=== PATIENT | male | born 1990 | race Caucasian/White ===

== ENCOUNTER 2017-11-19 15:49 | Emergency (ER) | payer SELFPAY ==
[2017-11-19 16:09] VITALS: BP 113/73; PULSE 63; RESP 18; TEMP 99.2; O2SAT 97
--- NOTE | 2017-11-19 16:18 | C.PDOC ---
History Of Present Illness 26-year-old male presents to the ED with complaints of left shoulder pain for 2 days. He reports heavy lifting at work and strained his arm. Patient took aleve with mild relief. He has a history of tear and surgical repair 2 years ago. Denies any numbness, weakness or fall. Time Seen by Provider: 11/19/17 16:11 Chief Complaint (Nursing): Upper Extremity Problem/Injury History Per: Patient History/Exam Limitations: no limitations Onset/Duration Of Symptoms: Days Current Symptoms Are (Timing): Still Present Past Medical History Reviewed: Historical Data, Nursing Documentation, Vital Signs Vital Signs: Last Vital Signs Temp 99.2 F 11/19/17 16:07 Pulse 63 11/19/17 16:07 Resp 18 11/19/17 16:07 BP 113/73 11/19/17 16:07 Pulse Ox 97 11/19/17 17:19 - Medical History PMH: No Chronic Diseases Other Surgeries: Left shoulder surgery Family History: States: No Known Family Hx - Social History Hx Alcohol Use: No Hx Substance Use: No Review Of Systems Except As Marked, All Systems Reviewed And Found Negative. Musculoskeletal: Positive for: Shoulder Pain. Negative for: Other (swelling) Neurological: Negative for: Weakness, Numbness, Incoordination Physical Exam - Physical Exam Appears: Well, Non-toxic, No Acute Distress Skin: Warm, Dry, No Rash Head: Atraumatic, Normacephalic Eye(s): bilateral: Normal Inspection Oral Mucosa: Moist Neck: Normal ROM, Supple Chest: Symmetrical Cardiovascular: Rhythm Regular, No Murmur Respiratory: Normal Breath Sounds, No Rales, No Rhonchi, No Wheezing Extremity: Normal ROM, Tenderness (mild tenderness to the anterior aspect of left shoulder), No Deformity, No Swelling Pulses: Left Radial: Normal, Right Radial: Normal Neurological/Psych: Oriented x3, Normal Speech, Normal Motor, Normal Sensation ED Course And Treatment O2 Sat by Pulse Oximetry: 97 (room air) Pulse Ox Interpretation: Normal Medical Decision Making Medical Decision Making: Impression: 26-year-old with left shoulder pain; no new injury Patient will be discharged home with prescription for Motrin. Advised to take medication as prescribed for pain control and follow up with orthopedist for further evaluation. There is agreement to discharge plan. Disposition Counseled Patient/Family Regarding: Diagnosis, Need For Followup, Rx Given - Disposition Referrals: Zuhair Mortensen MD [Staff Provider] - Disposition: HOME/ ROUTINE Disposition Time: 16:17 Condition: GOOD Additional Instructions: Take Motrin as needed for pain every 6 hours, with food to not upset stomach. Follow up with orthopedic if pain persists over one week. Prescriptions: Ibuprofen [Motrin] 600 mg PO Q8 #30 tab Instructions: Shoulder Pain (DC) Forms: Work Excuse - POA Present On Arrival: None - Clinical Impression Clinical Impression: Sprain of shoulder - PA / [employer] / Resident Statement MD/DO has reviewed & agrees with the documentation as recorded. - Scribe Statement The provider has reviewed the documentation as recorded by the Scribe (Clarice Strickland) All medical record entries made by the Scribe were at my direction and personally dictated by me. I have reviewed the chart and agree that the record accurately reflects my personal performance of the history, physical exam, medical decision making, and the department course for this patient. I have also personally directed, reviewed, and agree with the discharge instructions and disposition.
== END 2017-11-19 16:29 | disposition home or self-care (01) ==
LOC: C.ER 15:49
DX: S43.402A Unspecified sprain of left shoulder joint, initial encounter (principal); X50.9XXA Other and unspecified overexertion or strenuous movements or postures, initial encounter; Y92.89 Other specified places as the place of occurrence of the external cause; Y99.0 Civilian activity done for income or pay

== ENCOUNTER 2017-11-21 13:47 | Emergency (ER) | payer MEDICAID, OTHER ==
[2017-11-21 14:10] VITALS: BP 145/84; PULSE 83; RESP 18; TEMP 98.5; O2SAT 98
--- NOTE | 2017-11-21 14:13 | C.PDOC ---
History Of Present Illness 26-year-old male presents to the ED with complaints of worsening right shoulder pain and new-onset paresthesias down the right arm for 2 days. Patient seen here on 11/19 and was initially only having the shoulder pain, discharged home with Motrin 600mg prescription. Patient is now having new pain radiating down the right arm and paresthesias to the 2nd and 3rd fingers. He denies associated weakness, numbness, or neck pain. Patient admits he does a lot of heavy lifting with jerking motions at his job. No trauma. He reports limited relief with Motrin. Time Seen by Provider: 11/21/17 14:11 Chief Complaint (Nursing): Upper Extremity Problem/Injury History Per: Patient History/Exam Limitations: no limitations Onset/Duration Of Symptoms: Days Current Symptoms Are (Timing): Still Present Exacerbating Factor(s): Strenuous Use Of Affected Area, Movement Past Medical History Reviewed: Historical Data, Nursing Documentation, Vital Signs Vital Signs: Last Vital Signs Temp 98.5 F 11/21/17 14:07 Pulse 83 11/21/17 14:07 Resp 18 11/21/17 14:07 BP 145/84 11/21/17 14:07 Pulse Ox 98 11/21/17 14:36 - Medical History PMH: No Chronic Diseases Other Surgeries: Left shoulder surgery Family History: States: No Known Family Hx - Social History Hx Tobacco Use: No Hx Alcohol Use: No Hx Substance Use: No - Immunization History Hx Tetanus Toxoid Vaccination: No Hx Influenza Vaccination: Yes Hx Pneumococcal Vaccination: No Review Of Systems Except As Marked, All Systems Reviewed And Found Negative. Musculoskeletal: Positive for: Shoulder Pain (radiating down right arm). Negative for: Neck Pain Neurological: Positive for: Other (paresthesias to right 2nd and 3rd digits). Negative for: Weakness, Numbness Physical Exam - Physical Exam Appears: Non-toxic, No Acute Distress Skin: Warm, Dry, No Rash Head: Atraumatic, Normacephalic Eye(s): bilateral: Normal Inspection Oral Mucosa: Moist Neck: Normal ROM, No Midline Cervical Tenderness, No Paracervical Tenderness, Supple Chest: Symmetrical Cardiovascular: Rhythm Regular, No Murmur Respiratory: Normal Breath Sounds, No Accessory Muscle Use, Other (NARD) Extremity: Normal ROM (with FROM of right shoulder and digits), No Tenderness, Capillary Refill (< 2 sec), No Deformity, No Swelling, Other (No skin changes) Pulses: Left Radial: Normal, Right Radial: Normal Neurological/Psych: Oriented x3, Normal Speech, Normal Motor, Normal Sensation, Other (No focal deficits) ED Course And Treatment O2 Sat by Pulse Oximetry: 98 (RA) Pulse Ox Interpretation: Normal Progress - Data Reviewed Data Reviewed: Old records Medical Decision Making Medical Decision Making: Impression: Cervical radiculopathy Time: 14:31 Initial Plan: --Decadron 12 mg PO --Neurontin 300 mg PO --Toradol 60 mg IM --Tylenol 650 mg PO Counseled patient regarding diagnosis and treatment plan. Patient provided with RXs for Tylenol 500, Neurontin, and Tramadol. Referral to the clinic provided, advised to follow up for persistent symptoms. Disposition Counseled Patient/Family Regarding: Diagnosis, Need For Followup, Rx Given - Disposition Referrals: Pending Sale To [facility] [Outside] [facility] [Outside] Disposition: HOME/ ROUTINE Disposition Time: 14:33 Condition: IMPROVED Prescriptions: Acetaminophen [Tylenol Extra Strength] 2 tab PO Q6 #30 tablet Gabapentin [Neurontin] 300 mg PO TID #30 cap Tramadol HCl [Ultram] 50 mg PO QID #20 tab Instructions: Radiculopathy (DC) Forms: [facility] (Fijian), Work Excuse - POA Present On Arrival: None - Clinical Impression Clinical Impression: Cervical radiculopathy - Scribe Statement The provider has reviewed the documentation as recorded by the Scribe (Clarice Strickland) Provider Attestation: All medical record entries made by the Scribe were at my direction and personally dictated by me. I have reviewed the chart and agree that the record accurately reflects my personal performance of the history, physical exam, medical decision making, and the department course for this patient. I have also personally directed, reviewed, and agree with the discharge instructions and disposition.
== END 2017-11-21 14:41 | disposition home or self-care (01) ==
LOC: C.ER 13:47
DX: M54.12 Radiculopathy, cervical region (principal)
CPT/HCPCS: 96372; 99284; J1885; J8540